=== PATIENT | female | born 1995 | race Caucasian/White ===

== ENCOUNTER 2019-08-29 12:10 | Emergency (ER) | payer OTHER, BC ==
[2019-08-29 13:32] VITALS: BP 129/83
--- NOTE | 2019-08-29 13:35 | UC ---
Lower Extremity/Ankle HPI - HPI Summary HPI Summary: 24 year-old female who is training for a marathon and she started having medial right foot pain a few weeks ago which has continued. She is concerned she may have a stress fracture. - History of Current Complaint Chief Complaint: UCLowerExtremity Stated Complaint: RT FOOT INJURY Time Seen by Provider: 08/29/19 13:34 Hx Obtained From: Patient Hx Last Menstrual Period: ended 2 days ago ?: No Onset/Duration: Gradual Onset, Lasting Weeks Severity Initially: Mild Severity Currently: Mild Pain Intensity: 0 Aggravating Factor(s): Ambulation Alleviating Factor(s): Nothing Able to Bear Weight: Yes - Allergies/Home Medications Allergies/Adverse Reactions: Allergies Allergy/AdvReac Type Severity Reaction Status Date / Time No Known Allergies Allergy Verified 08/29/19 13:32 Home Medications: Home Medications Levonorgestrel-Ethin Estradiol [Lessina-28] 1 tab PO DAILY 08/29/19 [History Confirmed 08/29/19] PMH/Surg Hx/FS Hx/Imm Hx Previously Healthy: Yes - Surgical History Surgical History: Yes Surgery Procedure, Year, and Place: ear tubes - Family History Known Family History: Positive: Cardiac Disease - Social History Alcohol Use: Occasionally Substance Use Type: None Smoking Status (MU): Never Smoked Tobacco - Immunization History Most Recent Tetanus Shot: UTD Vaccination Up to Date: Yes Review of Systems All Other Systems Reviewed And Are Negative: Yes Musculoskeletal: Positive: Other: - Complains of pain to the medial aspect of her right foot which is lasted for weeks. No specific injury. Is Patient Immunocompromised?: No Physical Exam Triage Information Reviewed: Yes Appearance: Well-Appearing, No Pain Distress, Well-Nourished Vital Signs: Initial Vital Signs Temp 98.1 F 08/29/19 13:28 Pulse 50 08/29/19 13:28 Resp 16 08/29/19 13:28 BP 129/83 08/29/19 13:28 Pulse Ox 100 08/29/19 13:28 Vital Signs Reviewed: Yes Musculoskeletal: Positive: Strength Intact, ROM Intact, Other: - Good peripheral pulses neuro sensation capillary refill, Achilles is intact, base of the first and fifth metatarsals are nontender. Mild tenderness on palpation to the proximal medial aspect of her right foot with minimal swelling present. No deformity or bruising is noted. Neurological Exam: Normal Psychological Exam: Normal Skin Exam: Normal Lower Extremity Course/Dx - Course Course Of Treatment: Right foot x-ray:INDICATION: Right foot injury. TECHNIQUE: 3 views of the right foot were obtained. FINDINGS: The bones are in normal alignment. No fracture is seen. Joint spaces appear maintained. IMPRESSION: NO EVIDENCE FOR FRACTURE. As I was giving the patient the discharge instructions verbally she did tell me that she just ran part of a marathon yesterday. [place] and will follow up with her specialist in [place] when she gets home. In the meantime she is to apply heat and take Motrin and I advised her not to run at all this week. - Differential Dx/Diagnosis Provider Diagnosis: Foot sprain Discharge ED - Sign-Out/Discharge Documenting (check all that apply): Patient Departure All imaging exams completed and their final reports reviewed: Yes - Discharge Plan Condition: Good Disposition: HOME Patient Education Materials: Foot Sprain (ED) Referrals: Marsha Lechuga MD [Medical Doctor] - No Primary Care Phys,NOPCP [Primary Care Provider] - Additional Instructions: Take Motrin as directed for pain and swelling every 8 hours with food. You can follow-up with Dr. Lechuga who is a sports medicine physician. Limit ambulation and rest over the next week. - Billing Disposition and Condition Condition: GOOD Disposition: Home
== END 2019-08-29 14:35 | disposition home or self-care (01) ==
LOC: UCCORT 12:10
DX: S93.601A Unspecified sprain of right foot, initial encounter (principal); X58.XXXA Exposure to other specified factors, initial encounter; Y93.02 Activity, running; Y92.9 Unspecified place or not applicable
CPT/HCPCS: 99211; G0463